=== PATIENT | male | born 1965 | race Caucasian/White ===

== ENCOUNTER 2022-05-13 11:08 | Outpatient (CLI) | payer OTHER ==
--- NOTE | 2022-05-13 12:46 | XRAY Report ---
PROCEDURE: Chest 2 View X-Ray INDICATIONS: PNEUMONIA TECHNIQUE: 2 views of the chest were acquired. COMPARISON: None. FINDINGS: Surgical changes and devices: None. Lungs and pleura: No pleural effusions or pneumothorax. Lungs are clear. Mediastinum: Mediastinal contours are normal. Heart size is normal. Bones and chest wall: No suspicious bony abnormalities. Soft tissues appear unremarkable. IMPRESSION: No evidence acute pulmonary process. Reviewed by: Dionicio Harmon MD on 05/13/2022 12:45 PM PST Approved by: Dionicio Harmon MD on 05/13/2022 12:45 PM PST Station ID: [id number]
== END 2022-05-13 11:09 | disposition home or self-care (01) ==
LOC: DI 11:08
PROVIDERS: ATTEND Physician Assistant Medical
DX: J18.9 Pneumonia, unspecified organism (principal)